=== PATIENT | female | born 1950 | race Caucasian/White ===

== ENCOUNTER 2017-12-19 12:30 | Inpatient (IN) | payer MEDICARE, BC ==
[2017-12-31] MEDS ORDERED: FAMOTIDINE 20MG TABLET PO ONE (06:00)
[2017-12-31] MEDS ORDERED: VANCOMYCIN HCL 1,000 MG in DEXTROSE 5 % IN WATER 250 ML IVPB ONE ×2 (06:00)
[2017-12-31] MEDS ORDERED: METOCLOPRAMIDE 10 MG TABLET PO ONE (06:00)
[2017-12-31] MEDS ORDERED: ACETAMINOPHEN 1,000 MG/100 ML BTL IV ONE (06:00)
[2017-12-31] MEDS ORDERED: CELECOXIB 100 MG CAPSULE PO ONE (06:00)
[2017-12-31 06:40] LABS: URINE APPEARANCE CLEAR; URINE BILIRUBIN NEGATIVE (NEGATIVE); URINE BLOOD TRACE-I (NEGATIVE); URINE COLOR YELLOW; URINE GLUCOSE (UA) NEGATIVE (NEGATIVE); URINE KETONE NEGATIVE (NEGATIVE); URINE LEUKOCYTE ESTERASE TRACE (NEGATIVE); URINE NITRITE NEGATIVE (NEGATIVE); URINE PROTEIN NEGATIVE (NEGATIVE); URINE UROBILINOGEN 0.2 E.U./dL (0.20 - 1.00)
[2017-12-31 06:40] LABS: HEMATOCRIT 46.7 % (35.0-47.0); MEAN CELL VOLUME 85.7 fl (81-97); MEAN CORPUSCULAR HEMOGLOBIN 27.5 pg (27-33); MEAN CORPUSCULAR HGB CONC 32.1 g/dl (32-36); MEAN PLATELET VOLUME 10.3 fl (7.4-10.4); PLATELET COUNT 119 K/uL (130-400); RED BLOOD COUNT 5.45 M/uL (3.80-5.40); RED CELL DISTRIBUTION WIDTH 16.6 % (11.5-14.5); WHITE BLOOD COUNT W/O DIFF 3.1 K/uL (4.2-12.2)
[2017-12-31 06:59] LABS: URINE OTHER CRYSTALS 4+ /hpf; URINE WBC 0 - 2 (0-2/hpf)
[2017-12-31 07:12] LABS: PLATELET ESTIMATE NORMAL (NORMAL)
[2017-12-31 07:38] LABS: ABO GROUP A; ANTIBODY SCREEN NEGATIVE (NEGATIVE); RH TYPE POSITIVE
[2017-12-31] MEDS ORDERED: ACETAMINOPHEN 325 MG TAB PO PRN (08:06)
[2017-12-31] MEDS ORDERED: MAGNESIUM HYDROXIDE 30 ML UDC PO PRN (08:06)
[2017-12-31] MEDS ORDERED: METOCLOPRAMIDE HCL 10 MG/2 ML VIAL IVP PRN (08:06)
[2017-12-31] MEDS ORDERED: HYDROCODONE/APAP 5/325MG TABLET PO PRN ×2 (08:06)
[2017-12-31] MEDS ORDERED: HYDROMORPHONE HCL 2 MG/ML VIAL IM PRN ×2 (08:06)
[2017-12-31] MEDS ORDERED: AL HYDROX/MAG HYDROX 30ML UD PO PRN (08:06)
[2017-12-31] MEDS ORDERED: DIPHENHYDRAMINE HCL 25 MG CAPSULE PO PRN (08:06)
[2017-12-31] MEDS ORDERED: ONDANSETRON HCL IV 4 MG/2 ML VIAL IVP PRN (08:06)
[2017-12-31] MEDS ORDERED: ACETAMINOPHEN W/ CODEINE 300MG/30MG TABLET PO PRN ×2 (08:06)
[2017-12-31] MEDS ORDERED: TRAMADOL HCL 50 MG TABLET PO PRN (08:06)
[2017-12-31] MEDS ORDERED: ZOLPIDEM TARTRATE 5 MG TABLET PO PRN (08:06)
[2017-12-31] MEDS ORDERED: PROMETHAZINE HCL 12.5 MG in 0.9 % SODIUM CHLORIDE 100ML 50 ML IVPB PRN (08:06)
[2017-12-31] MEDS ORDERED: BISACODYL 10 MG SUPP RC PRN (08:06)
[2017-12-31] MEDS ORDERED: ACETAMINOPHEN W/ CODEINE 300MG/60MG TABLET PO PRN ×2 (08:06)
[2017-12-31] MEDS ORDERED: KETOROLAC 30 MG/ML VIAL IVP PRN ×2 (08:06)
[2017-12-31] MEDS ORDERED: NALOXONE 0.4 MG/1 ML VIAL IVP PRN (08:06)
[2017-12-31] MEDS ORDERED: VANCOMYCIN HCL 1 GM VIAL IVPB ONE ×2 (09:53→16:14)
[2017-12-31] MEDS ORDERED: BUPIVACAINE LIPOSOME 266MG/20ML VIAL IV ONE (09:53)
[2017-12-31] MEDS ORDERED: BUPIVACAINE 0.5% W/EPI MPF 30 ML VIAL IVP ONE ×2 (09:53→16:14)
[2017-12-31] MEDS ORDERED: TRANEXAMIC ACID 1,000 MG/10 ML ML IV ONE ×2 (09:53→16:14)
[2017-12-31] MEDS ORDERED: DEXTROSE 5 % AND 0.9 % NACL 1,000 ML IV PRN (10:30)
[2017-12-31] MEDS ORDERED: ALPRAZOLAM 0.25 MG TABLET PO PRN (11:01)
[2017-12-31] MEDS: MECLIZINE 25 MG TABLET PO ONE ×2 (12:03→12:06)
[2017-12-31] MEDS: DOCUSATE SODIUM 100 MG CAPSULE PO SCH ×2 (12:08→21:05)
[2017-12-31] MEDS: FERROUS SULFATE 325 MG TAB PO SCH ×2 (12:08→21:05)
[2017-12-31] MEDS: HYDROCODONE/APAP 7.5/325MG TABLET PO PRN ×2 (12:15→22:37)
--- NOTE | 2017-12-31 14:53 | Rehab Evaluation ---
Patient Information - Patient Information Diagnosis: R hip DJD Ordered Treatment: PT Evaluate and Treat Status: Initial Evaluation Surgery: Yes (R hip THR) Date of Surgery: 12/31/17 Past Medical/Surgical Hx: PAST MEDICAL/SURGICAL HISTORY Past Surgical History RTKA right RTC repair hyst bladder sling ORIF left ankle soha thyroidectomy tonsils right ear sx PMH - Respiratory Hx Respiratory Disorders Yes Hx Sleep Apnea Yes Hx of CPAP Yes: in process Comment: recent retest, new cpap ordered PMH - Cardiovascular Hx Cardiovascular Disorders Yes Hx Hypertension Yes: on meds good control Exercise Tolerance Fair Hx Transient Ischemic Attacks Yes: 5 yrs ago no residual (TIA) PMH - Neuro Hx Neurological Disorders Yes Hx Transient Ischemic Attacks Yes: 5 yrs ago no residual (TIA) PMH - GI Hx Gastrointestinal Disorders Yes Hx Irritable Bowel Yes: U/C controlled with meds Hx Ulcer Yes: colon PMH - Hx Genitourinary Disorders Yes Hx Bladder Problem Yes: bladder sling still some urine urgency PMH - Endocrine Hx Endocrine Disorders Yes Hx Diabetes No Hx Thyroid Disease Yes: thyroidectomy due to growth PMH - Musculoskeletal Hx Musculoskeletal Disorders Yes Hx Arthritis Yes PMH - Psych Hx Psychiatric Problems Yes Hx Anxiety Yes Hx Depression Yes PMH - Hematology/Oncology Hx Hematology/Oncology Yes Disorders Hx Anemia Yes Hx Blood Disorders Yes: low white blood cells neutropenia, dx'd 2006 Hx Bruising Yes 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 The patient's bathroom was equipped with a walk in shower with a shower nora and grab bars and an elevated toilet with a commode seat with handles. The patient has a 2 wheeled walker, 4 wheeled walker, single point cane with wide base of support.) Precautions: [place], Fall, Other (WBAT on the R LE.) - Time With Patient Total Time Spent With Patient (Min): 30 Treatment Procedures: Detail (Initial Evaluation.) Subjective Information - Subjective Information Per Patient (The patient had pain complaints level 3 to 4.) Objective Data - Mental Status Patient Orientation: Oriented x3 - Visual Perception Appears within normal limits for therapeutic activities - ROM Not within normal limits (The patient's R hip is within total hip precautions, all other L LE AROM is WNL.) - Strength/Tone Not within normal limits (The patient's R LE strength was not tested secondary to s/p surgery, however strength is functional ( patient was able to lift LE in and out of bed.) The L LE strength is generally 4+ to 5/5.) - Bed Mobility Independent (The patient was able to acheive supine to sit with head of bed elevated independently, the patient required minimal PA to lift R LE into bed with sit to supine.) - Transfers Independent (The patient was independent with sit to and from stand transfer. The patient was independent with toilet transfer.) - Balance Balance Sitting: Good Balance Standing: Good - Sensation Intact - Gait Detail (The patient ambulated with 2 wheeled walker WBAT on the R LE with assist of one to handle IV only a distance 50 feet x 1.) Therapy Assessment - Therapy Assessment Detail (The patient was independent with transfers and ambulation with wheeled walker. The patient required minimal PA with sit supine, lifting R LE but was independent with supine to sit. The patient reports she has a leg airplane patrol pilot at home. Feel the patient will progress well with mobility.) Problem List - Problem List Physical Therapy Problem List: Detail (1) Decreased R LE strength as to be expected following surgery 2) Occasional assist with bed mobilty) Goals - Goals Physical Therapy Goals: 1) The patient will be independent with HEP of THR exercises. 2) The patient will consistently be independent with supine to and from sit transfer. Prognosis - Prognosis Good Plan - Plan Physical Therapy Plan: PT 1 to 2 times a day for instruction in THR HEP and bed mobilty until all inpatient PT goals have met.
[2017-12-31] MEDS ORDERED: SCOPOLAMINE 1 PATCH TDSY TD ONE (16:15)
[2017-12-31] MEDS: VANCOMYCIN HCL 1,000 MG in DEXTROSE 5 % IN WATER 250 ML IVPB SCH ×2 (18:25)
--- NOTE | 2017-12-31 19:45 | RADIOLOGY REPORT ---
EXAM: HIP,UNILAT, 1 VIEW RIGHT HISTORY: POST HIP ARTHROPLASTY. TECHNIQUE: Single AP view of the right hip was performed. FINDINGS: The patient is status post right hip arthroplasty. No complicating process. IMPRESSION: STATUS POST RIGHT HIP ARTHROPLASTY. NO COMPLICATING PROCESS. JOB NUMBER: [id number] MTDD
--- NOTE | 2017-12-31 20:36 | Operative Note ---
DATE: 12/31/2017. PREOPERATIVE DIAGNOSIS: RIGHT HIP ARTHROSIS. POSTOPERATIVE DIAGNOSIS: RIGHT HIP ARTHROSIS. PROCEDURE: Right total hip arthroplasty. SURGEON: Castillo Murphy M.D. ANESTHESIA: Spinal. Shanta Nair CRNA. COMPLICATIONS: None. BLOOD LOSS: A total of 300 mL. OPERATIVE FINDINGS: [id number] severe hip arthrosis. COMPONENTS PLACED: A [employer] synergy cemented total hip arthroplasty system with a size 15 high offset collared femoral stem, a 52-mm, 3-hole reflection acetabular shell component with one one acetabular screw, two screw caps, a centrally threaded screw cap, and a 35-degree hooded highly crosslinked polyethylene liner, 2.0 gm of Vancomycin cement, a distal cement restrictor, and centralizer. INDICATIONS FOR OPERATION: This is a 67-year-old female with endstage hip arthrosis. She has failed nonoperative treatments and scheduled for a hip replacement. I explained the risks and benefits of surgery in detail for diagnosis and procedures. These include but are not limited to, infection, nerve injury, vessel injury, persistent pain symptoms, numbness, and tingling in her hip, periprosthetic fracture, need for resection arthroplasty. She knows that the components can become infected and can loosen. I explained nerve injury, vessel injury, blood clot, the need for further procedures, the need for anticoagulation to prevent blood clots, and the risks associated with his medications. All of her questions were answered. The treatment and course were outlined, and she agreed to proceed. PROCEDURE: The patient was brought to the operating room and placed in the left lateral decubitus position. Her right hip and lower extremity were prepped and draped in sterile fashion. Prepped with ChloraPrep and draped. Intraoperative time out was performed. Next, a posterior approach was performed, and the hip was marked out. The incision was marked and was infiltrated with 0.5% Marcaine with epinephrine and tranexamic acid with half of our mixture. The skin and subcutaneous tissue was dissected down to the gluteal fascia. The gluteal fascia was split longitudinally and the subgluteal plane was bluntly dissected. The self retainers were brought in. Protected the sciatic nerve at all times. We took our short external rotators and tagged them with #2 Vicryl. Incised the capsule and dislocated the femoral head. There were severely arthritic and massive osteophytes and deformity. We resected the femoral head about 1.5 above the lesser trochanter. Inserted the box osteotome and then inserted the reamers and reamed up to size 15. We broached to a 13 in 15 degrees of anteversion. Calcar planed to 14 and 15 and had a good fit and planned to cement those in this 67-year-old female. Next, attention was turned to the acetabulum. We released the capsule anteriorly. We placed the inferior acetabular retractor and an anterior cobra retractor and retracted the proximal femur. I removed some of the capsule and labrum around the periphery and then started reaming with the 44 mm reamer working in 1.0 mm increments in 45 degrees of inclination and 20 degrees of anteversion until we reamed up to a size 51. We trialed a 52 and this had a good fit. Next, I changed gloves and irrigated copiously. I then impacted down the real three-hole reflection acetabular shell component with the helicopter guide, again in 45 degrees of inclination and 20 degrees of anteversion. I verified it was down the medial wall. Next we drilled a posterior central superior quadrant screw hole, heading posteromedially along the column and measured for a 40 mm screw. I inserted that screw and had good purchase. Next I did a trial reduction with the trial liner. Placed the trial stem again , and with the high offset neck, this allowed for good abductor tension and flexion to 90 degrees and internal rotation to 80 degrees before the hip dislocated. Symmetric leg lengths; she was short about 2.0 cm preoperatively. I then had stability with extension and external rotation with the size we used. Next we took out trial components. We copiously irrigated the femoral canal and acetabulum with pulse lavage with antibiotic solution. I placed a centrally threaded screw cap and two other screw caps. Impacted down the real 35-degree hooded, highly crosslinked polyethylene liner with the chavarria in the posterosuperior quadrant. Verified that was locked. Irrigated the femoral canal and placed the cement restrictor distally. I injected cement with third-generation cement technique through the suction catheter. Inserted the real femoral stem in 15 degrees of anteversion until the collar was flush with the medial calcar. I held it there until the cement hardened and removed excess cement. Next I cleaned and dried the trunnion and impacted down the real femoral head. I re-reduced the hip and found that range of motion felt the same and leg lengths were equal. We irrigated copiously. Next we injected the deep short external rotators, periosteum, and gluteal abductors with 0.5% Marcaine with epinephrine, 2.0 gm of tranexamic acid, and Exparel mixture with the remainder of that. Next we sutured the external rotators to the abductors using #2-0 Vicryl stitch. We irrigated again and closed the gluteal fascia with running #2 Quill. Closed the skin with #2-0 Vicryl, and then PABLO dressing was applied. The patient tolerated the procedures well with no intraoperative complications. All sponge and needle counts were correct. She was sent to the recovery room stable and neurovascularly intact. She will be discharged to the floor and will be discharged to home in one to two days. JOB NUMBER: [id number] cc: Timoteo Graham M.D. MTDJose
[2017-12-31] MEDS: SERTRALINE HCL 50 MG TABLET PO SCH (21:04)
[2017-12-31] MEDS: SULFAMETHOXAZOLE PO SCH (21:06)
[2017-12-31] MEDS: PENTASA 250 MG PO SCH (21:06)
[2017-12-31] MEDS: TRIMETHOPRIM PO SCH (21:06)
[2017-12-31] MEDS: ATORVASTATIN 20 MG PO SCH (21:06)
[2018-01-01] MEDS: VANCOMYCIN HCL 1,000 MG in DEXTROSE 5 % IN WATER 250 ML IVPB SCH ×2 (06:00)
[2018-01-01] MEDS: PATIENT OWN MED: LEVOTHYROXINE 125 MCG PO SCH (06:03)
[2018-01-01 07:58] LABS: HEMATOCRIT 32.7 % (35.0-47.0)
[2018-01-01] MEDS: HYDROCODONE/APAP 7.5/325MG TABLET PO PRN ×2 (08:22→16:30)
--- NOTE | 2018-01-01 09:44 | Physical Therapy Tx Note ---
Physical Therapy Tx Note - Treatment Note Tolerated: Good Total Time Spent With Patient: 30 Physical Therapy Tx Note: Detail (The patient was in bed when PT arrived. The patient had complaints of R hip pain but did not rate her pain using 0-10 pain scale. The patient reports she is fearful of getting out of bed herself. The patient acheived supine to sit independently with head of the bed elevated x 2. The patient ambulated with 2 wheeled walker a distance of 80 feet x 1 WBAT on R LE independently. The patient acheived sit to supine independently, using strap to lift R LE x 2. The patient completed THR exercises including : gluteal sets, quad sets, hamstring sets, ankle pumps, hip abduction and heel slides all x 3-5 reps. The patient was independent with HEP. The patient has met all inpatient PT goals. The patient acheived supine to and from sit x 2 independently with use of strap. The patient required verbal cues not to use bed trapeze.) Physical Therapy Problem List: Detail (1) Decreased R LE strength as to be expected following surgery 2) Occasional assist with bed mobilty) Physical Therapy Goals: GOALS MET: 1) The patient will be independent with HEP of THR exercises. 2) The patient will consistently be independent with supine to and from sit transfer. Physical Therapy Plan: All inpatient PT goals have been met. The patient is discharged from inpatient PT and is to receive ongoing PT in another setting.
[2018-01-01] MEDS: DOCUSATE SODIUM 100 MG CAPSULE PO SCH ×2 (10:21→21:29)
[2018-01-01] MEDS: RIVAROXABAN 10 MG TABLET PO SCH (10:21)
[2018-01-01] MEDS: CELECOXIB 100 MG CAPSULE PO SCH (10:21)
[2018-01-01] MEDS: LORATADINE 10 MG TABLET PO SCH (10:21)
[2018-01-01] MEDS: FERROUS SULFATE 325 MG TAB PO SCH ×2 (10:21→21:29)
[2018-01-01] MEDS: PATIENT OWN MED: ENALAPRIL 20 MG PO SCH (10:23)
[2018-01-01] MEDS: TRIMETHOPRIM PO SCH ×2 (10:25→21:31)
[2018-01-01] MEDS: PENTASA 250 MG PO SCH ×2 (10:25→21:30)
[2018-01-01] MEDS: SULFAMETHOXAZOLE PO SCH ×2 (10:25→21:31)
[2018-01-01] MEDS: TRAMADOL HCL 50 MG TABLET PO PRN ×2 (11:11→18:38)
[2018-01-01] MEDS ORDERED: DEXAMETHASONE 4 MG/ML 1ML VIAL IVP ONE (12:51)
[2018-01-01] MEDS ORDERED: EPHEDRINE SULFATE 50 MG/ML ML IV ONE (12:51)
[2018-01-01] MEDS ORDERED: PROPOFOL 10 MG/ML VIAL IV ONE (12:51)
[2018-01-01] MEDS ORDERED: *PACU ONLY* KETAMINE HCL 10 MG/ML (20ML) VIAL IV ONE (12:51)
[2018-01-01] MEDS ORDERED: ONDANSETRON HCL IV 4 MG/2 ML VIAL IVP ONE (12:51)
[2018-01-01] MEDS ORDERED: MIDAZOLAM HCL 2MG/2ML VIAL IV ONE (12:51)
[2018-01-01] MEDS ORDERED: PHENYLEPHRINE HCL 10 MG/ML VIAL IVP ONE (12:51)
--- NOTE | 2018-01-01 17:02 | Rehab Evaluation ---
Patient Information - Patient Information Diagnosis: R hip DJD Ordered Treatment: OT Evaluate and Treat Status: Initial Evaluation Surgery: Yes (R hip THR) Date of Surgery: 12/31/17 Past Medical/Surgical Hx: PAST MEDICAL/SURGICAL HISTORY Past Surgical History RTKA right RTC repair hyst bladder sling ORIF left ankle soha thyroidectomy tonsils right ear sx PMH - Respiratory Hx Respiratory Disorders Yes Hx Sleep Apnea Yes Hx of CPAP Yes: in process Comment: recent retest, new cpap ordered PMH - Cardiovascular Hx Cardiovascular Disorders Yes Hx Hypertension Yes: on meds good control Exercise Tolerance Fair Hx Transient Ischemic Attacks Yes: 5 yrs ago no residual (TIA) PMH - Neuro Hx Neurological Disorders Yes Hx Transient Ischemic Attacks Yes: 5 yrs ago no residual (TIA) PMH - GI Hx Gastrointestinal Disorders Yes Hx Irritable Bowel Yes: U/C controlled with meds Hx Ulcer Yes: colon PMH - Hx Genitourinary Disorders Yes Hx Bladder Problem Yes: bladder sling still some urine urgency PMH - Endocrine Hx Endocrine Disorders Yes Hx Diabetes No Hx Thyroid Disease Yes: thyroidectomy due to growth PMH - Musculoskeletal Hx Musculoskeletal Disorders Yes Hx Arthritis Yes PMH - Psych Hx Psychiatric Problems Yes Hx Anxiety Yes Hx Depression Yes PMH - Hematology/Oncology Hx Hematology/Oncology Yes Disorders Hx Anemia Yes Hx Blood Disorders Yes: low white blood cells neutropenia, dx'd 2006 Hx Bruising Yes 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 Pt was living Ind. at a senior apartment complex, without assistance. Pt. uses a diesel powerplant mechanic helper occasionally as needed, and has AE in bathroom.) Social History: Detail (The patient lives alone on first floor in an apartment ( [facility]) with no stairs but has access to an elevator, as meals are on another floor. The patient's bathroom is equipped with a walk in shower with a bench, grab bars, and an elevated toilet with a commode seat with handles. The patient has a 2 wheeled walker, 4 wheeled walker, single point cane with wide base of support, diesel powerplant mechanic helper, and a hospital bed. Pt has assistance from friends and family if needed.) Precautions: [place], Fall, Other (WBAT on the R LE.) - Time With Patient Total Time Spent With Patient (Min): 55 Treatment Procedures: Detail (Initial Evaluation: Moderate Complexity. Pt was left sitting in arm chair with lunch and call light in reach. Eval completed by Sandra Blair under direct supervision of OTRL.) Subjective Information - Subjective Information Per Patient (Pt reported having a R RTC injury in the past.) Objective Data - Pain Pain Present: Yes Pain Scale Used: Numeric (1 - 10) (Pt rated pain as 4 or 5/10 in R hip and described as "very manageable".) - Mental Status Patient Orientation: Oriented x3 - Visual Perception Appears within normal limits for therapeutic activities - ROM Within normal limits (AROM BUE: RUE functional IR impaired and supination WFL. LUE IR WFL. All other planes of motion were WNL for BUE.) - Strength/Tone Within normal limits (MMT- RUE: Shoulder Flexion 4-/5, Abd and Biceps 4/5, and Triceps 3+/5. LUE: Shoulder Flexion 3+/5; Abd, Biceps, and Triceps 4-/5.) - Coordination Appears within normal limits for therapeutic activities (Pt. stated coordination is difficult (FMC). Delayed processing observed.) - Bed Mobility Independent (Supine<>SS EOB modifed indp. with head of bed raised and use of bed rail as well as mod VC for self-concept (i.e. confidence). Pt provided with strong theraband to utilize as a leg landscape account manager specifically for days with increased pain, as pt stated she was scared of "falling" and it "hurts" to lift leg.) - Transfers Independent (SS EOB<>standing with 2WW Indp. while adhering to hip precautions. Throughout session, pt self-concept and participation in transfers improved.) - Balance Balance Sitting: Good Balance Standing: Fair (Requires use of 2WW at this time for support.) - Sensation Intact (Bilateral fingertips light touch intact.) - ADL's/IADL's Detail (Education provided to pt regarding total hip precautions and pt was able to demonstrate ability to adhere to hip precautions during ADL tasks with min VC. However, pt stated it was "going to be hard to remember" the hip precautions so she was provided with an educational handout to maximize carryover. Educ. provided in use of hip kit AE and adaptive dressing techniques with application of hip precautions. Pt donned undergarment and pants modified indp. with diesel powerplant mechanic helper and min VC to adhere to hip precautions. Pt. required multiple attempts to return demo. However, pt initiated self corrections to adhere to hip precautions throughout session. Pt also donned bra and thread puller t -shirt indp. Pt was offered opportunity to purchase hip kit but decided not to purchase one today. Plans to purchase long handled sponge and other hip kit AE from a pharmacy.) Therapy Assessment - Therapy Assessment Detail (ADL tasks completed safely with Modified Ind. and no longer requires skilled inpatient OT services at this time. Pt lives in a senior complex with option to have skilled services if needed, and has a good support system to provide assistance if needed. Pt. may benefit from future OT or PT Rx to improve BUE strength and ROM for increased ease of ADL's and to prevent future injury.) Patient Education - Patient Education Teaching Topic: Equipment Use, Precautions, Other (Adaptive LB dressing techniques) Response: Return Demonstration, Reinforcement Needed, Verbalize Understanding Teaching Method: Discussion, Demonstration, Handout Teaching Recipient: Patient Barriers To Learning: None Problem List - Problem List Physical Therapy Problem List: Detail (1) Decreased R LE strength as to be expected following surgery 2) Occasional assist with bed mobilty) Goals - Goals Physical Therapy Goals: GOALS MET: 1) The patient will be independent with HEP of THR exercises. 2) The patient will consistently be independent with supine to and from sit transfer. Prognosis - Prognosis Good Plan - Plan Physical Therapy Plan: All inpatient PT goals have been met. The patient is discharged from inpatient PT and is to receive ongoing PT in another setting. Occupational Therapy Plan: D/C from skilled inpatient OT services at this time. Pt reported having no questions or concerns regarding return to living environment.
--- NOTE | 2018-01-01 21:11 | RADIOLOGY REPORT ---
EXAM: CHEST 1 VIEW HISTORY: DIFFICULTY IN BREATHING. TECHNIQUE: Portable AP semi-upright view of the chest was performed. FINDINGS: Mild cardiomegaly. The lungs are hyperinflated. No infiltrate or pleural effusion. Osteopenia. IMPRESSION: 1. CARDIOMEGALY. 2. HYPERINFLATED LUNGS. NO INFILTRATE OR PLEURAL EFFUSION. JOB NUMBER: [id number] MTDD
[2018-01-01] MEDS: SERTRALINE HCL 50 MG TABLET PO SCH (21:29)
[2018-01-01] MEDS: ATORVASTATIN 20 MG PO SCH (21:30)
[2018-01-02] MEDS: PATIENT OWN MED: LEVOTHYROXINE 125 MCG PO SCH (06:23)
[2018-01-02 07:52] LABS: HEMATOCRIT 32.2 % (35.0-47.0)
[2018-01-02] MEDS: CELECOXIB 100 MG CAPSULE PO SCH (09:29)
[2018-01-02] MEDS: LORATADINE 10 MG TABLET PO SCH (09:30)
[2018-01-02] MEDS: FERROUS SULFATE 325 MG TAB PO SCH ×2 (09:30→21:25)
[2018-01-02] MEDS: DOCUSATE SODIUM 100 MG CAPSULE PO SCH ×2 (09:30→21:25)
[2018-01-02] MEDS: PENTASA 250 MG PO SCH ×2 (09:33→21:25)
[2018-01-02] MEDS: PATIENT OWN MED: ENALAPRIL 20 MG PO SCH (09:33)
[2018-01-02] MEDS: SULFAMETHOXAZOLE PO SCH ×2 (09:34→21:25)
[2018-01-02] MEDS: RIVAROXABAN 10 MG TABLET PO SCH (09:34)
[2018-01-02] MEDS: TRIMETHOPRIM PO SCH ×2 (09:34→21:25)
[2018-01-02] MEDS ORDERED: FILGRASTIM SC ONE (16:30)
[2018-01-02] MEDS: HYDROCODONE/APAP 7.5/325MG TABLET PO PRN (17:22)
[2018-01-02] MEDS: ATORVASTATIN 20 MG PO SCH (21:25)
[2018-01-02] MEDS: SERTRALINE HCL 50 MG TABLET PO SCH (21:25)
[2018-01-03] MEDS: HYDROCODONE/APAP 7.5/325MG TABLET PO PRN ×2 (01:18→11:35)
[2018-01-03] MEDS: PATIENT OWN MED: LEVOTHYROXINE 125 MCG PO SCH (06:59)
[2018-01-03] MEDS: CELECOXIB 100 MG CAPSULE PO SCH (11:02)
[2018-01-03] MEDS: FERROUS SULFATE 325 MG TAB PO SCH (11:02)
[2018-01-03] MEDS: DOCUSATE SODIUM 100 MG CAPSULE PO SCH (11:03)
[2018-01-03] MEDS: LORATADINE 10 MG TABLET PO SCH (11:04)
[2018-01-03] MEDS: PENTASA 250 MG PO SCH (11:06)
[2018-01-03] MEDS: SULFAMETHOXAZOLE PO SCH (11:13)
[2018-01-03] MEDS: PATIENT OWN MED: ENALAPRIL 20 MG PO SCH (11:13)
[2018-01-03] MEDS: TRIMETHOPRIM PO SCH (11:13)
[2018-01-03] MEDS: RIVAROXABAN 10 MG TABLET PO SCH (11:14)
--- NOTE | 2018-01-08 16:54 | Discharge Summary ---
DATE OF DICTATION: 01/07/18 HISTORY: This is a 67-year-old female with endstage right hip arthrosis. Failed nonoperative treatment and was scheduled for right total hip arthroplasty. HOSPITAL COURSE: The patient admitted the date of procedure and tolerated it well. Postop, she was afebrile, vital signs are stable, and neurovascularly intact. Dressings were clean, dry, and intact. She had Xarelto for DVT prophylaxis, pain medications, antibiotics into the joint and placed onto the Floor for total hip rehab protocol. Hospital course was uncomplicated. She had acute asymptomatic blood loss anemia. Her hemoglobin was 10 on postop day 1 and 2 respectively. She did well with therapy and was eventually discharged to rehab on postop day #3, 01/03. She can continue her preadmission medications plus sleeping pill, pain pill, iron, and Xarelto for a total of two weeks postoperative. Follow-up in two weeks. Have her PABLO dressing changed in one week. cc: Dr. Vishal Jones JOB NUMBER: [id number] MTDD
== END 2018-01-03 12:20 | DRG 470 ==
LOC: MEDSURG 12-31 05:54
PROVIDERS: ADMIT Orthopaedic Surgery; ATTEND Orthopaedic Surgery
PROC: 0SR9069 Replacement of Right Hip Joint with Oxidized Zirconium on Polyethylene Synthetic Substitute, Cemented, Open Approach (ICD-10-PCS; principal; 2017-12-31 08:00)
DX: M16.11 Unilateral primary osteoarthritis, right hip (principal); C91.Z0 Other lymphoid leukemia not having achieved remission; I10 Essential (primary) hypertension; E03.9 Hypothyroidism, unspecified
CPT/HCPCS: 71045; 81001; 85014; 85018; 85027; 86850; 86900; 86901; 94760; 97110; 97166; 97530; C1776; J1885; J2370; J2405; J7042; J7060

== ENCOUNTER 2019-07-21 07:58 | Inpatient (IN) | payer MEDICARE, BC ==
[2019-07-21] MEDS: CLINDAMYCIN PHOS/D5W 900MG 900 MG/50 ML BAG IVPB ONE ×2 (08:53→15:29)
[2019-07-21] MEDS: CELECOXIB 100 MG CAPSULE PO ONE ×2 (08:53→09:04)
[2019-07-21] MEDS: FAMOTIDINE 20MG TABLET PO ONE ×2 (08:53→09:04)
[2019-07-21] MEDS: METOCLOPRAMIDE 10 MG TABLET PO ONE ×2 (08:54→09:04)
[2019-07-21] MEDS: ACETAMINOPHEN 500 MG TABLET PO ONE ×2 (08:54→09:04)
[2019-07-21] MEDS: VANCOMYCIN 1GM/200ML PREMIX 1 GM/200 ML PIGGYBACK IVPB ONE ×2 (08:54→08:55)
[2019-07-21] MEDS: SCOPOLAMINE 1 PATCH TDSY TD ONE ×2 (08:54→09:05)
[2019-07-21] MEDS ORDERED: 0.9 % SODIUM CHLORIDE 1000ML 1,000 ML IV ONE (08:58)
[2019-07-21 09:29] LABS: ABO GROUP A; ANTIBODY SCREEN NEGATIVE (NEGATIVE); RH TYPE POSITIVE
[2019-07-21] MEDS ORDERED: CLINDAMYCIN PHOS/D5W 900MG 900 MG/50 ML BAG IVPB ONE (10:11)
[2019-07-21] MEDS ORDERED: BUPIVACAINE 0.5% W/EPI MPF 30 ML VIAL SQ ONE ×2 (10:32→10:33)
[2019-07-21] MEDS ORDERED: VANCOMYCIN HCL 1 GM VIAL IR ONE (10:33)
[2019-07-21] MEDS ORDERED: BUPIVACAINE LIPOSOME 266MG/20ML VIAL SQ ONE (10:33)
[2019-07-21] MEDS ORDERED: VANCOMYCIN HCL 1 GM VIAL IU ONE (10:33)
[2019-07-21] MEDS ORDERED: TRANEXAMIC ACID 1,000 MG/10 ML ML IVPB ONE (10:33)
[2019-07-21] MEDS ORDERED: RINGERS SOLUTION,LACTATED 1,000 ML IV ONE ×2 (11:15→12:55)
--- NOTE | 2019-07-21 13:07 | Rehab Evaluation ---
Patient Information - Patient Information Diagnosis: left hip OA Ordered Treatment: OT Evaluate and Treat Status: Initial Evaluation Surgery: Yes (left BIRDIE) Date of Surgery: 07/21/19 Past Medical/Surgical Hx: PAST MEDICAL/SURGICAL HISTORY Past Surgical History RTHA 12-31-17 RTKA right RTC repair hyst bladder sling ORIF left ankle soha thyroidectomy tonsils right ear sx PMH - Respiratory Hx Respiratory Disorders Yes Hx Sleep Apnea Yes Hx of CPAP Yes: INSTRUCTED TO BRING TO THE HOSPITAL Comment: recent retest, new cpap ordered PMH - Cardiovascular Hx Cardiovascular Disorders Yes Hx Hypertension Yes: on meds good control Exercise Tolerance Fair Hx Transient Ischemic Attacks Yes: 2013 yrs ago no residual (TIA) Comment: HYPERLIPIDEMIA PMH - Neuro Hx Neurological Disorders Yes Hx Transient Ischemic Attacks Yes: 2013 yrs ago no residual (TIA) PMH - GI Hx Gastrointestinal Disorders Yes Hx Irritable Bowel Yes: U/C controlled with meds Hx Ulcer Yes: colon Comment: ENLARGED SPLEEN PMH - Hx Genitourinary Disorders Yes Hx Bladder Problem Yes: HX SLING SOME URGENCY AND LEAKING WEARS A PAD PMH - Endocrine Hx Endocrine Disorders Yes Hx Diabetes No Hx Thyroid Disease Yes: HX THYROIDECTOMY D/T HYPERPLASIA PMH - Musculoskeletal Hx Musculoskeletal Disorders Yes Hx Arthritis Yes: RA PMH - Psych Hx Psychiatric Problems Yes Hx Anxiety Yes Hx Depression Yes PMH - Hematology/Oncology Hx Hematology/Oncology Yes Disorders Hx Anemia Yes Hx Blood Disorders Yes: NEUTROPENIA UNK ETIOLOGY DX 2017 ON NEUPOGEN INJS 4X'S A WK Hx Bruising Yes: BRUISES EASILY Hx Cancer Yes: leukemia large granular lymphocetic leukemia dx'd 2017 STABLE Hx Chemotherapy No Hx Radiation Therapy No Comment: sees senior business consultant once a month Premorbid Status: Detail (Pt lives at [facility] and has no steps at the entrance. She has a walk in shower with a seat and grab bars and an elevated toilet without grab bars. She uses the microwave for meals on occasion but staff provide all home mgmt, meal prep and laundry services. She has a 2 wheeled walker, 4 wheeled walker, 2 reachers and a long shoe horn.) Social History: Detail (Pt plans to discharge to rehab.) Precautions: [place], Fall, Other (total hip precautions LLE) - Time With Patient Total Time Spent With Patient (Min): 35 Treatment Procedures: Detail (OT eval low complexity) Subjective Information - Subjective Information Per Patient Objective Data - Pain Pain Present: Yes (11/15) - Mental Status Patient Orientation: Oriented x3 - Visual Perception Appears within normal limits for therapeutic activities - ROM Within normal limits (Francois UE AROM WNL) - Strength/Tone Within normal limits (Francois UE strength WNL) - Coordination Appears within normal limits for therapeutic activities - Bed Mobility Independent (Supine to sit Indly with encouragement) - Transfers Independent (Ind with sit to stand from EOB) - Balance Balance Sitting: Good Balance Standing: Good - Sensation Intact - Gait Detail (Pt ambulating in room with 2 wheeled walker and supervision) - ADL's/IADL's Detail (Pt educated on modified LE dressing techniques using planogrammer while maintaining total hip precautions. Pt able to asher pants and slip on shoes with planogrammer. She reports she does not wear socks. Pt then able to doff slip on shoes and pants Indly after verbal instruction. Reviewed kitchen and shower safety and modifications, pt verbalized understanding.) Therapy Assessment - Therapy Assessment Detail (Pt is Ind with use of adaptive equipment for modified LE dressing.) Problem List - Problem List Occupational Therapy Problem List: Detail (No current IP OT problems identified.) Goals - Goals Occupational Therapy Goals: No current IP OT goals identified. Prognosis - Prognosis Good Plan - Plan Occupational Therapy Plan: Pt is discharged from IP OT. Thank you for this referral.
--- NOTE | 2019-07-21 13:13 | RADIOLOGY REPORT ---
EXAMINATION: Left Hip Single View EXAM DATE: 07/21/2019 12:48 PM TECHNIQUE: AP INDICATION: S/P LT BIRDIE COMPARISON: None ENCOUNTER: Initial FINDINGS: Single AP view of the left hip shows left total hip arthroplasty hardware in normal alignment. There is no evidence of hardware failure. There is no acute fracture. IMPRESSION: Left total hip arthroplasty hardware in normal alignment. Dictated by: Sharif Patel MD on 07/21/2019 1:11 PM. .
[2019-07-21] MEDS ORDERED: AL HYDROX/MAG HYDROX 30ML UD PO PRN (14:13)
[2019-07-21] MEDS ORDERED: BISACODYL 10 MG SUPP RC PRN (14:13)
[2019-07-21] MEDS ORDERED: HYDROCODONE/APAP 5/325MG TABLET PO PRN (14:13)
[2019-07-21] MEDS ORDERED: ACETAMINOPHEN W/ CODEINE 300MG/60MG TABLET PO PRN (14:13)
[2019-07-21] MEDS ORDERED: ZOLPIDEM TARTRATE 5 MG TABLET PO PRN (14:13)
[2019-07-21] MEDS ORDERED: NALOXONE 0.4 MG/1 ML VIAL IVP PRN (14:13)
[2019-07-21] MEDS ORDERED: DEXTROSE 5 % AND 0.9 % NACL 1,000 ML IV PRN (14:13)
[2019-07-21] MEDS ORDERED: ACETAMINOPHEN W/ CODEINE 300MG/30MG TABLET PO PRN ×2 (14:13)
[2019-07-21] MEDS ORDERED: ONDANSETRON HCL IV 4 MG/2 ML VIAL IVP PRN (14:13)
[2019-07-21] MEDS ORDERED: HYDROMORPHONE HCL 2 MG/ML VIAL IM PRN ×2 (14:13)
[2019-07-21] MEDS ORDERED: PROMETHAZINE HCL 12.5 MG in 0.9 % SODIUM CHLORIDE 100ML 50 ML IVPB PRN (14:13)
[2019-07-21] MEDS ORDERED: TRAMADOL HCL 50 MG TABLET PO PRN ×2 (14:13)
[2019-07-21] MEDS ORDERED: DIPHENHYDRAMINE HCL 25 MG CAPSULE PO PRN (14:13)
[2019-07-21] MEDS ORDERED: METOCLOPRAMIDE HCL 10 MG/2 ML VIAL IVP PRN (14:13)
[2019-07-21] MEDS ORDERED: MAGNESIUM HYDROXIDE 30 ML UDC PO PRN (14:13)
[2019-07-21] MEDS ORDERED: KETOROLAC 30 MG/ML VIAL IVP PRN (14:13)
[2019-07-21] MEDS: HYDROCODONE/APAP 7.5/325MG TABLET PO PRN (14:53)
--- NOTE | 2019-07-21 16:00 | Rehab Evaluation ---
Patient Information - Patient Information Diagnosis: L hip OA Ordered Treatment: PT Evaluate and Treat Status: Initial Evaluation Surgery: Yes (L THR) Date of Surgery: 07/21/19 Past Medical/Surgical Hx: PAST MEDICAL/SURGICAL HISTORY Past Surgical History RTHA 12-31-17 RTKA right RTC repair hyst bladder sling ORIF left ankle soha thyroidectomy tonsils right ear sx PMH - Respiratory Hx Respiratory Disorders Yes Hx Sleep Apnea Yes Hx of CPAP Yes: INSTRUCTED TO BRING TO THE HOSPITAL Comment: recent retest, new cpap ordered PMH - Cardiovascular Hx Cardiovascular Disorders Yes Hx Hypertension Yes: on meds good control Exercise Tolerance Fair Hx Transient Ischemic Attacks Yes: 2012 yrs ago no residual (TIA) Comment: HYPERLIPIDEMIA PMH - Neuro Hx Neurological Disorders Yes Hx Transient Ischemic Attacks Yes: 2013 yrs ago no residual (TIA) PMH - GI Hx Gastrointestinal Disorders Yes Hx Irritable Bowel Yes: U/C controlled with meds Hx Ulcer Yes: colon Comment: ENLARGED SPLEEN PMH - Hx Genitourinary Disorders Yes Hx Bladder Problem Yes: HX SLING SOME URGENCY AND LEAKING WEARS A PAD PMH - Endocrine Hx Endocrine Disorders Yes Hx Diabetes No Hx Thyroid Disease Yes: HX THYROIDECTOMY D/T HYPERPLASIA PMH - Musculoskeletal Hx Musculoskeletal Disorders Yes Hx Arthritis Yes: RA PMH - Psych Hx Psychiatric Problems Yes Hx Anxiety Yes Hx Depression Yes PMH - Hematology/Oncology Hx Hematology/Oncology Yes Disorders Hx Anemia Yes Hx Blood Disorders Yes: NEUTROPENIA UNK ETIOLOGY DX 2017 ON NEUPOGEN INJS 4X'S A WK Hx Bruising Yes: BRUISES EASILY 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 The patient's bathroom is equipped with: a walk in shower, shower bench, hand held shower head,elevated toilet. There were grab bars present in shower but not by toilet. The patient has a front wheeled walker and canes.) Precautions: [place], Fall, Other (WBAT on the L LE and THR precautions.) - Time With Patient Total Time Spent With Patient (Min): 30 Treatment Procedures: Detail (Initial Evaluation, low complexity, gait training) Subjective Information - Subjective Information Per Patient (The patient initially had complaints of L hip pain 3 which increased to level 7 with movement. The patient complained of lightheadedness with sitting( room spinning) which decreased with time.) Objective Data - Mental Status Patient Orientation: Oriented x3 - Visual Perception Appears within normal limits for therapeutic activities - ROM Not within normal limits (The patient's L hip ROM is within THR precautions. The patient's other LE AROM is WNL.) - Strength/Tone Not within normal limits (The patient's LE strength was not formally tested however functionally L hip weakness was present( pt. required minimal assist with moving LE to edge of bed with supine to sit).) - Bed Mobility Needs Assist (Minimal PA to handle L LE and use of trapeze with supine to and from sit transfer.) - Transfers Needs Assist (Minimal to Moderate assist of 1 with sit to stand. CG with stand to sit.) - Balance Balance Sitting: Good Balance Standing: Fair (The patient requires support of walker to stand.) - Gait Detail (The patient did not ambulate due to increased lightheadedness with standing. The patient sat and slumped slightly wt PT supporting pt. Patient did not respond to her name for aprox. 5 seconds. Pt. was then roused and stated " I don't know what happened. " Pt. was assisted to a lying position . Nursing staff was present and B/P was taken and was low 88/58. Pt. was positioned appropriately with call light within reach.) Therapy Assessment - Therapy Assessment Detail (Pt. was unable to ambulate due to lightheadedness and low B/P. Pt. required assistance with bed mobility and transfers. Pt. to ambulate later with nursing staff to BR if able. PT will continue 1-2 times a day until inpt. PT goals are met.) Problem List - Problem List Physical Therapy Problem List: Detail (1) Decreased L LE strength 2) Assistance with mobility and transfers 3) Impaired ambulation) Goals - Goals Physical Therapy Goals: 1)The patient will ambulate with appropriate assistive device household distances WBAT on L LE independent/supervision for safety. 2) The patient will be independent with THR HEP. 3) The patient will be independent with bed mobility and transfers. Plan - Plan Physical Therapy Plan: PT 1-2 times a day for gait training on levels and stairs, transfer training, bed mobility and THR HEP.
[2019-07-21] MEDS: DOCUSATE SODIUM 100 MG CAPSULE PO SCH (21:06)
[2019-07-21] MEDS: MESALAMINE 500 MG CAPSULE.SA PO SCH (21:06)
[2019-07-21] MEDS: ATORVASTATIN 20 MG TABLET PO SCH (21:06)
[2019-07-21] MEDS: FERROUS SULFATE 325 MG TAB PO SCH (21:06)
[2019-07-21] MEDS: VANCOMYCIN 1GM/200ML PREMIX 1 GM/200 ML PIGGYBACK IVPB SCH (21:07)
[2019-07-21] MEDS ORDERED: ALPRAZOLAM 0.25 MG TABLET PO PRN (22:00)
[2019-07-22] MEDS: ACETAMINOPHEN 325 MG TAB PO PRN (04:57)
[2019-07-22] MEDS: LEVOTHYROXINE SODIUM 150 MCG TABLET PO SCH (06:33)
[2019-07-22 06:46] LABS: HEMATOCRIT 30.1 % (35.0-47.0); HEMOGLOBIN 9.2 gm/dl (11.6-16.0)
--- NOTE | 2019-07-22 07:11 | Operative Note ---
DATE OF SURGERY: 07/21/2019 PREOPERATIVE DIAGNOSIS: END-STAGE LEFT HIP ARTHROSIS. POSTOPERATIVE DIAGNOSIS: END-STAGE LEFT HIP ARTHROSIS. OPERATION: LEFT TOTAL HIP ARTHROPLASTY. SURGEON: Castillo Higgins M.D. ANESTHESIA: Spinal. COMPLICATIONS: None. ESTIMATED BLOOD LOSS: 200 ml. OPERATIVE FINDINGS:; [id number] hip arthrosis. COMPONENTS PLACED: 2 gram Vancomycin cemented Blakely and Nephew cemented Synergy collar stem size 15 high offset with a 32 mm plus 0 mm Oxinium femoral head component and a 52 mm three hold reflection acetabular shell component with 1 acetabular screw, 2 screw caps, centrally threaded screw caps and a 35-degree chavarria highly crosslinked polyethylene liner. INDICATION: This is a 69-year-old female who is well known to myself. She is status post right hip arthroplasty done a while ago and is now scheduled for her left. I explained all risks and benefits in detail for the diagnosis and procedure including, but not limited to infection, nerve injury, vessel injury, persistent pain, stiffness, numbness, tingling in her hip, periprosthetic fracture, need for resection arthroplasty should components become infected, or loosen, nerve injury, vessel injury, blood clot, and need for further procedures and limb length discrepancy and need for anticoagulation to prevent blood clots, and risks associated with these medications and all of her questions were answered. Rehab course was outlined. She agreed to proceed. PROCEDURE: The patient was brought to the Operating Room and placed in the right lateral decubitus position. The left hip and left lower extremity were prepped and draped in sterile fashion. Prepped again using ChloraPrep and draped. Intraoperative timeout was performed. Next using an incision marking template, we marked an incision over the hip and infiltrated with 0.5% Marcaine with Epinephrine, Exparel and tranexamic acid mixture which we used later in the deeper layers. Next the skin and subcutaneous tissues were dissected down, we used Aquamantys electrocautery throughout the entire case as well as regular Bovie electrocautery. We incised the gluteal fascia, split it longitudinally, placed a self retainer and carefully identified and protected the sciatic nerve at all times. Took off the short external rotators, and incised the capsule from the base and then extending proximally and released it. Next the femoral head was completely devoid of any articular cartilage or spurs. We resected about 1 cm above the lesser trochanter. Inserted a box osteotome and then started preparing the femoral canal using reamers working in 1 mm increments up to a size 15, we stopped there, and broached to a 13 calcar plane and then a 14 calcar plane and then a 15. There was 15 degrees anteversion and it was flush with the calcar. Attention was turned to the acetabulum, released the capsule anteriorly and placed the retractor there, placed an inferior acetabular retractor, resected some of the labrum and capsule around the peripheries. We started reaming 1 mm increments and 45 degrees inclination and 20 degrees anteversion to a size 51 which stopped there, trial 52 had good fit centrally and peripherally and that was the size that we used. We changed gloves, irrigated copiously, and inserted the real acetabular shell using our helicopter guide and again the same orientation that was down medially. Next we drilled the posterior central superior quadrant screw hole, inserted a 40 mm screw, had a good purchase, placed a trial liner, and did a trial reduction. Best combination range motion, stability and leg lengths was with a high offset 32 plus mm femoral head component. This allowed for flexion to 90 and rotation to 80 before the hip dislocated. Stability with extension and external dislocation. Symmetric leg lengths. Next we removed all trial components, we exposed the acetabulum, placed the two screw caps and centrally threaded screw cap in the holes. Impacted down the real acetabular liner within the posterior superior quadrant. Irrigated the femoral canal copiously and dried it with CarboJet and then placed a cement restrictor distally and injected cement in the symmetrical technique. Removed with suction catheter and packed down the real stem until the the collar was flush, removed excess cement again in 15 degrees of anteversion. Held until the cement hardened. Cleaned and dried the trunnion and impacted down the real femoral head component. Reduced the hip and found the range of motion to be the same. Irrigated copiously. We injected the rest of our mixture with 0.5% Marcaine with Epinephrine, Exparel, and tranexamic acid into the deep tissues of the gluteus. I worked it out superficially and subcutaneous. We closed the gluteal fascia with a running #2 Quill suture, irrigated again, closed the skin deep with 2-0 Vicryl securely, and a PABLO dressing was applied. She tolerated the procedure well. No intraoperative complications. All sponge, needle and blade counts were correct. Postoperative x-rays revealed good fit and orientation of components. She tolerated procedure well. No intraoperative complications. All sponge, needle, and blade counts were correct. Sent to Recovery Room in stable condition. Neurovascular intact. She will be discharged likely tomorrow. Follow-up in two weeks. JOB NUMBER: [id number] MTDD
[2019-07-22] MEDS ORDERED: NEUPOGEN SC ONE (10:00)
--- NOTE | 2019-07-22 10:00 | Physical Therapy Tx Note ---
Physical Therapy Tx Note - Treatment Note Total Time Spent With Patient: 25 Physical Therapy Tx Note: Detail (The patient was in bed when PT arrived. The patient was able to complete supine to and from sit transfer independently with use of trapeze. The patient ambulated with front wheeled walker a distance of 62 feet x 1 WBAT on the L LE with supervision for safety. Pt. experienced shortness of breath after ambulating. The patient was independent with sit to and from stand transfer. The patient completed THR HEP which included: gluteal sets, quad sets, hamstring sets, ankle pumps, heel slides, supine hip abduction. The patient has decreased endurance for activity. The patient has partially completed all PT goals. The patient uses trapeze for bed mobility and exhibits decreased endurance for activity. ( The patient needs to ambulate a distance to dining room at her apartment). Pt. is planning on going to Rehab. PT will monitor pt.'s ambulation distance and bed mobility while an inpt.) Physical Therapy Problem List: Detail (1) Decreased L LE strength 2) Assistance with mobility and transfers 3) Impaired ambulation) Physical Therapy Goals: 1)The patient will ambulate with appropriate assistive device household distances WBAT on L LE independent/supervision for safety. (Goal Met- pt. fatigued). 2) The patient will be independent with THR HEP (Goal Met). 3) The patient will be independent with bed mobility and transfers.(Goal partially met uses trapeze) Physical Therapy Plan: Patient has partially met PT goals. PT will monitor pt's ambulation and bed mobility ability 1 time a day until patient is discharged from [facility]. Pt. is planning on discharging to Rehab.
[2019-07-22] MEDS: VANCOMYCIN 1GM/200ML PREMIX 1 GM/200 ML PIGGYBACK IVPB SCH (10:23)
[2019-07-22] MEDS: LORATADINE 10 MG TABLET PO SCH (10:24)
[2019-07-22] MEDS: SERTRALINE HCL 50 MG TABLET PO SCH (10:24)
[2019-07-22] MEDS: FERROUS SULFATE 325 MG TAB PO SCH ×2 (10:24→22:14)
[2019-07-22] MEDS: FOLIC ACID 1 MG TABLET PO SCH (10:24)
[2019-07-22] MEDS: DOCUSATE SODIUM 100 MG CAPSULE PO SCH ×2 (10:24→22:14)
[2019-07-22] MEDS: CELECOXIB 100 MG CAPSULE PO SCH (10:24)
[2019-07-22] MEDS: MESALAMINE 500 MG CAPSULE.SA PO SCH ×2 (10:24→22:13)
[2019-07-22] MEDS: ENALAPRIL 5 MG TABLET PO SCH (10:30)
--- NOTE | 2019-07-22 10:48 | RADIOLOGY REPORT ---
EXAMINATION: Single View Chest EXAM DATE: 07/22/2019 10:29 AM TECHNIQUE: Single view chest INDICATION: rehab placement COMPARISON: 01/01/2018 report only ENCOUNTER: Not applicable FINDINGS: Cardiac silhouette unremarkable. Bibasilar discoid atelectasis or scarring. No pulmonary consolidatio n No pneumothorax or pleural effusion. IMPRESSION: Bibasilar discoid atelectasis or scarring Dictated by: Jules Dorsey MD on 07/22/2019 10:44 AM. .
[2019-07-22] MEDS: HYDROCODONE/APAP 7.5/325MG TABLET PO PRN ×2 (12:42→22:14)
[2019-07-22] MEDS ORDERED: EPHEDRINE SULFATE 50 MG/ML ML IV ONE (16:08)
[2019-07-22] MEDS ORDERED: KETOROLAC 30 MG/ML VIAL IVP ONE (16:08)
[2019-07-22] MEDS ORDERED: PHENYLEPHRINE HCL 10 MG/ML VIAL IVP ONE (16:08)
[2019-07-22] MEDS ORDERED: PROPOFOL 10 MG/ML VIAL IV ONE (16:08)
[2019-07-22] MEDS ORDERED: MIDAZOLAM HCL 2MG/2ML VIAL IV ONE (16:08)
[2019-07-22] MEDS: ATORVASTATIN 20 MG TABLET PO SCH (22:15)
[2019-07-23] MEDS: LEVOTHYROXINE SODIUM 150 MCG TABLET PO SCH (06:12)
[2019-07-23 06:59] LABS: HEMOGLOBIN 8.8 gm/dl (11.6-16.0)
[2019-07-23] MEDS: FOLIC ACID 1 MG TABLET PO SCH (10:42)
[2019-07-23] MEDS: CELECOXIB 100 MG CAPSULE PO SCH (10:43)
[2019-07-23] MEDS: LORATADINE 10 MG TABLET PO SCH (10:44)
[2019-07-23] MEDS: FERROUS SULFATE 325 MG TAB PO SCH ×2 (10:45→22:44)
[2019-07-23] MEDS: DOCUSATE SODIUM 100 MG CAPSULE PO SCH ×2 (10:46→22:45)
[2019-07-23] MEDS: MESALAMINE 500 MG CAPSULE.SA PO SCH ×2 (10:46→22:44)
[2019-07-23] MEDS: SERTRALINE HCL 50 MG TABLET PO SCH (10:46)
[2019-07-23] MEDS: ENALAPRIL 5 MG TABLET PO SCH (10:50)
[2019-07-23] MEDS: ACETAMINOPHEN 325 MG TAB PO PRN (10:58)
--- NOTE | 2019-07-23 13:40 | Physical Therapy Tx Note ---
Physical Therapy Tx Note - Treatment Note Tolerated: Good Total Time Spent With Patient: 15 Physical Therapy Tx Note: Detail (The patient was up in a recliner when PT arrived. The patient coninues to report of L hip pain with movement. The patient did not rate her pain using 0-10 pain scale. The patient ambulated with front wheeled walker WBAT on L LE a distance 130 feet x 2. The patient continues to exhibit shortness of breath with activity. The patient's THR HEP was completed including the following: ankle pumps, quad sets, hamstring sets, gluteal sets all x 10 reps, Hip abduction x 5 reps. The patient was left in recliner with call light within reach. The patient is transferring to Rehab tomorrow am.The patient has met all inpt. goals and is discharged from inpt. PT.) Physical Therapy Problem List: Detail (1) Decreased L LE strength 2) Assistance with mobility and transfers 3) Impaired ambulation) Physical Therapy Goals: 1)The patient will ambulate with appropriate assistive device household distances WBAT on L LE independent/supervision for safety. (Goal Met- pt. fatigued). 2) The patient will be independent with THR HEP (Goal Met). 3) The patient will be independent with bed mobility and transfers.(Goal met) Physical Therapy Plan: Patient has met all inpt. goals. The patient is transferring to Rehab tomorrow am.
[2019-07-23] MEDS: ATORVASTATIN 20 MG TABLET PO SCH (22:44)
[2019-07-23] MEDS: HYDROCODONE/APAP 5/325MG TABLET PO PRN (22:45)
[2019-07-24] MEDS: ACETAMINOPHEN 325 MG TAB PO PRN ×2 (03:09→08:22)
[2019-07-24] MEDS: LEVOTHYROXINE SODIUM 150 MCG TABLET PO SCH (07:06)
[2019-07-24] MEDS ORDERED: NEUPOGEN SC ONE (10:00)
[2019-07-24] MEDS: CELECOXIB 100 MG CAPSULE PO SCH (11:56)
[2019-07-24] MEDS: SERTRALINE HCL 50 MG TABLET PO SCH (11:59)
[2019-07-24] MEDS: ENALAPRIL 5 MG TABLET PO SCH (12:00)
[2019-07-24] MEDS: LORATADINE 10 MG TABLET PO SCH (12:01)
[2019-07-24] MEDS: FERROUS SULFATE 325 MG TAB PO SCH (12:01)
[2019-07-24] MEDS: DOCUSATE SODIUM 100 MG CAPSULE PO SCH (12:01)
[2019-07-24] MEDS: HYDROCODONE/APAP 5/325MG TABLET PO PRN (12:02)
[2019-07-24] MEDS: FOLIC ACID 1 MG TABLET PO SCH (12:02)
[2019-07-24] MEDS: MESALAMINE 500 MG CAPSULE.SA PO SCH (12:14)
== END 2019-07-24 12:30 | DRG 470 ==
LOC: MEDSURG 07:58 → EDSTATUS 14:00 → MEDSURG 07-22 14:02
PROVIDERS: ADMIT Orthopaedic Surgery; ATTEND Orthopaedic Surgery
PROC: 0SRB069 Replacement of Left Hip Joint with Oxidized Zirconium on Polyethylene Synthetic Substitute, Cemented, Open Approach (ICD-10-PCS; principal; 2019-07-21 10:00)
DX: M16.12 Unilateral primary osteoarthritis, left hip (principal); K51.90 Ulcerative colitis, unspecified, without complications; D70.9 Neutropenia, unspecified; I10 Essential (primary) hypertension; E78.00 Pure hypercholesterolemia, unspecified; M06.9 Rheumatoid arthritis, unspecified; Z86.73 Personal history of transient ischemic attack (TIA), and cerebral infarction without residual deficits; G47.33 Obstructive sleep apnea (adult) (pediatric)
CPT/HCPCS: 71045; 85014; 85018; 86850; 86900; 86901; C1776; J1885; J2370; J3370; J3490; J7030; J7042; J7120